=== PATIENT | female | born 2000 | race Caucasian/White ===

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

== ENCOUNTER 2022-03-11 10:08 | Emergency (ER) | payer BC ==
[2022-03-11 11:02] LABS: ALT 19 U/L (4-34); AST 24 U/L (14-36); African American GFR (CKD) >90 (>60 ml/min/1.73 sqM); Albumin 4.3 g/dL (3.5-5.0); Alkaline Phosphatase 76 U/L (38-126); Anion Gap 12 mmol/L; Blood Urea Nitrogen 13 mg/dL (7-17); Calcium 8.4 mg/dL (8.4-10.2); Carbon Dioxide 20 mmol/L (22-30); Chloride 105 mmol/L (98-107); Glucose 90 mg/dL (74-99); Lipase 226 U/L (23-300); Non-African American GFR(CKD) >90 (>60 ml/min/1.73 sqM); Sodium 137 mmol/L (137-145); Total Bilirubin 0.5 mg/dL (0.2-1.3); Total Protein 6.9 g/dL (6.3-8.2)
[2022-03-11 11:04] LABS: Anisocytosis Slight; Basophils % (A) 1 %; Eosinophils # (A) 0.1 k/uL (0-0.7); Eosinophils % (A) 1 %; HCT 25.5 % (34.0-46.0); Hypochromasia Marked; Lymphocytes # (A) 1.2 k/uL (1.0-4.8); Lymphocytes % (A) 27 %; MCHC 25.5 g/dL (31.0-37.0); MCV 62.7 fL (80.0-100.0); Mean Platelet Volume 8.2; Microcytosis Marked; Monocytes # (A) 0.2 k/uL (0-1.0); Monocytes % (A) 4 %; Neutrophils # (A) 2.8 k/uL (1.3-7.7); Neutrophils % (A) 65 %; Platelet Count 278 k/uL (150-450); RBC 4.06 m/uL (3.80-5.40); RDW 18.3 % (11.5-15.5); WBC 4.3 k/uL (4.0-11.0)
[2022-03-11 11:07] LABS: HGB 6.5 gm/dL (11.4-16.0)
--- NOTE | 2022-03-11 11:07 | XR ---
EXAMINATION TYPE: XR chest 2V DATE OF EXAM: 03/11/2022 COMPARISON: NONE HISTORY: Chest pain TECHNIQUE: Frontal and lateral views of the chest are obtained. FINDINGS: There is no focal air space opacity. No evidence for pneumothorax. No pleural effusion. The cardiac silhouette size is within normal limits. The osseous structures are grossly intact. IMPRESSION: 1. No acute cardiopulmonary process.
--- NOTE | 2022-03-11 11:18 | ED ---
General Adult HPI - General Chief complaint: Recheck/Abnormal Lab/Rx Stated complaint: Abn labs Time Seen by Provider: 03/11/22 10:19 Source: patient Mode of arrival: ambulatory Limitations: no limitations - History of Present Illness Initial comments: Patient is an otherwise healthy 21-year-old female who presents to the emergency department for low hemoglobin. Patient got her blood drawn yesterday at her primary care office due to intermittent stomach pain x 2 weeks. Patient and her parents state pain may be related to dairy products as pain usually follows dairy intake. Describes pain as cramping in the lower abdomen. During this pain patient usually has urgency to have a bowel movement, sometimes normal and sometimes diarrhea. Patient states she does not look at her bowel movements therefore unsure of blood in stool. Patient does not have pain currently but also reports intermittent chest burning for the past year. Patient was told she may have acid reflux. She has not paid attention to notice a pattern of the burning in relation to GERD risk factors. Patient got call today that her hemoglobin was 5.9. She denies fatigue, weakness, palpitations, shortness of breath. Denies history of anemia and GI bleed. Reports taking Motrin 2 or 3 times a month for headaches but otherwise denies chronic anti-inflammatory use. Denies alcohol and drug use. Reports regular menstrual periods every month, mild to moderate flow, approx 4-5 days. Patient is not vegetarian. - Related Data Home Medications Medication Instructions Recorded Confirmed norgestimate-ethinyl estradioL 1 tab PO DAILY 03/11/22 03/11/22 [Qpj-[id number]-Cbevun Tablet] Previous Rx's Medication Instructions Recorded Famotidine [Pepcid] 20 mg PO DAILY #30 tablet 03/11/22 Ferrous Sulfate [Slow Fe] 142 mg PO DAILY #30 tab 03/11/22 Allergies Allergy/AdvReac Type Severity Reaction Status Date / Time No Known Allergies Allergy Verified 03/11/22 13:09 Review of Systems ROS Statement: Those systems with pertinent positive or pertinent negative responses have been documented in the HPI. ROS Other: All systems not noted in ROS Statement are negative. Past Medical History Past Medical History: No Reported History History of Any Multi-Drug Resistant Organisms: None Reported Past Surgical History: Tonsillectomy Past Psychological History: No Psychological Hx Reported Smoking Status: Never smoker Past Alcohol Use History: Occasional Past Drug Use History: None Reported General Exam Limitations: no limitations General appearance: alert, in no apparent distress Eye exam: Present: normal appearance, PERRL, EOMI. Absent: scleral icterus, conjunctival injection, periorbital swelling Respiratory exam: Present: normal lung sounds bilaterally. Absent: respiratory distress, wheezes, rales, rhonchi, stridor Cardiovascular Exam: Present: regular rate, normal rhythm, normal heart sounds. Absent: systolic murmur, diastolic murmur, rubs, gallop, clicks GI/Abdominal exam: Present: soft, normal bowel sounds. Absent: distended, tende rness, guarding, rebound, rigid Extremities exam: Present: normal capillary refill. Absent: pedal edema Neurological exam: Present: alert, oriented X3, CN II-XII intact Psychiatric exam: Present: normal affect, normal mood Skin exam: Present: warm, dry, intact, normal color. Absent: rash Course Vital Signs 03/11/22 03/11/22 03/11/22 10:10 11:21 12:16 Temperature 98.1 F 98.5 F Pulse Rate 85 77 80 Respiratory 20 18 16 Rate Blood Pressure 120/74 117/53 124/58 O2 Sat by Pulse 99 100 98 Oximetry 03/11/22 03/11/22 03/11/22 12:27 12:47 13:47 Temperature 99.3 F 98.1 F 98.9 F Pulse Rate 84 89 81 Respiratory 16 16 16 Rate Blood Pressure 119/57 118/65 118/57 O2 Sat by Pulse 100 99 Oximetry 03/11/22 15:17 Temperature 98.9 F Pulse Rate 77 Respiratory 18 Rate Blood Pressure 115/63 O2 Sat by Pulse 98 Oximetry EKG Findings - EKG Comments: EKG Findings:: EKG taken at 11:58. Sinus rhythm with sinus arrhythmia. Ve ntricular rate 74. CO interval 149. QRS duration 93. QTc 426 Medical Decision Making - Medical Decision Making This is a 21-year-old female presenting with low hemoglobin. Patient is well- appearing. Vitals within normal limits. Laboratory studies obtained. There is microcytic hypochromic anemia with hemoglobin at 6.5. No previous for comparison. Hemoccult is negative. Other laboratory studies are relatively unremarkable. CT of the abdomen and pelvis with contrast is negative for acute process. Patient given 1 unit of packed red blood cells. At this time etiology of her anemia is unknown. Possibly iron deficient. Patient does not have anemia symptoms. Case discussed with Dr. Perkins. She will be discharged with strict return parameters. I will send her home with iron supplementation and Pepcid for heartburn. She'll follow-up with Dr. Perkins for further evaluation. Dr. Castillo is my attending. - Lab Data Result diagrams: 03/11/22 10:39 03/11/22 10:39 Lab Results 03/11/22 03/11/22 03/11/22 Range/Units 10:39 10:39 10:39 WBC 4.3 (4.0-11.0) k/uL RBC 4.06 (3.80-5.40) m/uL Hgb 6.5 L* (11.4-16.0) gm/dL Hct 25.5 L (34.0-46.0) % MCV 62.7 L (80.0-100.0) fL MCH 16.0 L (25.0-35.0) pg MCHC 25.5 L (31.0-37.0) g/dL RDW 18.3 H (11.5-15.5) % Plt Count 278 (150-450) k/uL MPV 8.2 Neutrophils % 65 % Lymphocytes % 27 % Monocytes % 4 % Eosinophils % 1 % Basophils % 1 % Neutrophils # 2.8 (1.3-7.7) k/uL Lymphocytes # 1.2 (1.0-4.8) k/uL Monocytes # 0.2 (0-1.0) k/uL Eosinophils # 0.1 (0-0.7) k/uL Basophils # 0.0 (0-0.2) k/uL Manual Slide Review Performed Hypochromasia Marked Anisocytosis Slight Microcytosis Marked Sodium 137 (137-145) mmol/L Potassium 4.0 (3.5-5.1) mmol/L Chloride 105 (98-107) mmol/L Carbon Dioxide 20 L (22-30) mmol/L Anion Gap 12 mmol/L BUN 13 (7-17) mg/dL Creatinine 0.59 (0.52-1.04) mg/dL Est GFR (CKD-EPI)AfAm >90 (>60 ml/min/1.73 sqM) Est GFR (CKD-EPI)NonAf >90 (>60 ml/min/1.73 sqM) Glucose 90 (74-99) mg/dL Calcium 8.4 (8.4-10.2) mg/dL Total Bilirubin 0.5 (0.2-1.3) mg/dL AST 24 (14-36) U/L ALT 19 (4-34) U/L Alkaline Phosphatase 76 (38-126) U/L Troponin I (0.000-0.034) ng/mL Total Protein 6.9 (6.3-8.2) g/dL Albumin 4.3 (3.5-5.0) g/dL Lipase 226 (23-300) U/L Urine Color Urine Appearance (Clear) Urine pH (5.0-8.0) Ur Specific [place] (1.001-1.035) Urine Protein (Negative) Urine Glucose (UA) (Negative) Urine Ketones (Negative) Urine Blood (Negative) Urine Nitrite (Negative) Urine Bilirubin (Negative) Urine Urobilinogen (<2.0) mg/dL Ur Leukocyte Esterase (Negative) Urine HCG, Qual (Not Detectd) Stool Occult Blood (Negative) Blood Type AB Positive Blood Type Confirm Blood Type Recheck No Previous Record Bld Type Recheck Status CABO Indicated Antibody Screen NEGATIVE Crossmatch See Detail Spec Expiration Date 03/14/2022233803/11/22 03/11/22 03/11/22 Range/Units 10:39 10:56 12:26 WBC (4.0-11.0) k/uL RBC (3.80-5.40) m/uL Hgb (11.4-16.0) gm/dL Hct (34.0-46.0) % MCV (80.0-100.0) fL MCH (25.0-35.0) pg MCHC (31.0-37.0) g/dL RDW (11.5-15.5) % Plt Count (150-450) k/uL MPV Neutrophils % % Lymphocytes % % Monocytes % % Eosinophils % % Basophils % % Neutrophils # (1.3-7.7) k/uL Lymphocytes # (1.0-4.8) k/uL Monocytes # (0-1.0) k/uL Eosinophils # (0-0.7) k/uL Basophils # (0-0.2) k/uL Manual Slide Review Hypochromasia Anisocytosis Microcytosis Sodium (137-145) mmol/L Potassium (3.5-5.1) mmol/L Chloride (98-107) mmol/L Carbon Dioxide (22-30) mmol/L Anion Gap mmol/L BUN (7-17) mg/dL Creatinine (0.52-1.04) mg/dL Est GFR (CKD-EPI)AfAm (>60 ml/min/1.73 sqM) Est GFR (CKD-EPI)NonAf (>60 ml/min/1.73 sqM) Glucose (74-99) mg/dL Calcium (8.4-10.2) mg/dL Total Bilirubin (0.2-1.3) mg/dL AST (14-36) U/L ALT (4-34) U/L Alkaline Phosphatase (38-126) U/L Troponin I <0.012 (0.000-0.034) ng/mL Total Protein (6.3-8.2) g/dL Albumin (3.5-5.0) g/dL Lipase (23-300) U/L Urine Color Urine Appearance (Clear) Urine pH (5.0-8.0) Ur Specific [place] (1.001-1.035) Urine Protein (Negative) Urine Glucose (UA) (Negative) Urine Ketones (Negative) Urine Blood (Negative) Urine Nitrite (Negative) Urine Bilirubin (Negative) Urine Urobilinogen (<2.0) mg/dL Ur Leukocyte Esterase (Negative) Urine HCG, Qual (Not Detectd) Stool Occult Blood Negative (Negative) Blood Type Blood Type Confirm AB Positive Blood Type Recheck Bld Type Recheck Status Antibody Screen Crossmatch Spec Expiration Date 03/11/22 03/11/22 Range/Units 12:26 12:26 WBC (4.0-11.0) k/uL RBC (3.80-5.40) m/uL Hgb (11.4-16.0) gm/dL Hct (34.0-46.0) % MCV (80.0-100.0) fL MCH (25.0-35.0) pg MCHC (31.0-37.0) g/dL RDW (11.5-15.5) % Plt Count (150-450) k/uL MPV Neutrophils % % Lymphocytes % % Monocytes % % Eosinophils % % Basophils % % Neutrophils # (1.3-7.7) k/uL Lymphocytes # (1.0-4.8) k/uL Monocytes # (0-1.0) k/uL Eosinophils # (0-0.7) k/uL Basophils # (0-0.2) k/uL Manual Slide Review Hypochromasia Anisocytosis Microcytosis Sodium (137-145) mmol/L Potassium (3.5-5.1) mmol/L Chloride (98-107) mmol/L Carbon Dioxide (22-30) mmol/L Anion Gap mmol/L BUN (7-17) mg/dL Creatinine (0.52-1.04) mg/dL Est GFR (CKD-EPI)AfAm (>60 ml/min/1.73 sqM) Est GFR (CKD-EPI)NonAf (>60 ml/min/1.73 sqM) Glucose (74-99) mg/dL Calcium (8.4-10.2) mg/dL Total Bilirubin (0.2-1.3) mg/dL AST (14-36) U/L ALT (4-34) U/L Alkaline Phosphatase (38-126) U/L Troponin I (0.000-0.034) ng/mL Total Protein (6.3-8.2) g/dL Albumin (3.5-5.0) g/dL Lipase (23-300) U/L Urine Color Yellow Urine Appearance Clear (Clear) Urine pH 6.0 (5.0-8.0) Ur Specific [place] 1.026 (1.001-1.035) Urine Protein Trace H (Negative) Urine Glucose (UA) Negative (Negative) Urine Ketones Negative (Negative) Urine Blood Negative (Negative) Urine Nitrite Negative (Negative) Urine Bilirubin Negative (Negative) Urine Urobilinogen <2.0 (<2.0) mg/dL Ur Leukocyte Esterase Negative (Negative) Urine HCG, Qual Not Detected (Not Detectd) Stool Occult Blood (Negative) Blood Type Blood Type Confirm Blood Type Recheck Bld Type Recheck Status Antibody Screen Crossmatch Spec Expiration Date Disposition Clinical Impression: Low hemoglobin, Burning chest pain, Lower abdominal pain Disposition: HOME SELF-CARE Condition: Good Instructions (If sedation given, give patient instructions): Abdominal Pain (ED), Anemia (ED) Additional Instructions: Take medication as directed. Please follow up with her primary care provider for repeat laboratory studies next week. Return to the emergency department experience new, concerning, or worsening symptoms. Prescriptions: Famotidine [Pepcid] 20 mg PO DAILY #30 tablet Ferrous Sulfate [Slow Fe] 142 mg PO DAILY #30 tab Is patient prescribed a controlled substance at d/c from ED?: No Referrals: Thomas Perkins MD [Primary Care Provider] - 1-2 days
[2022-03-11 13:02] LABS: Appearance,Urine Clear (Clear); Bilirubin,Urine Negative (Negative); Blood,Urine Negative (Negative); Color,Urine Yellow; Glucose,Urine (UA) Negative (Negative); Ketones,Urine Negative (Negative); Leukocyte Esterase,Urine Negative (Negative); Nitrite,Urine Negative (Negative); Protein,Urine Trace (Negative); Specific Gravity,Urine 1.026 (1.001-1.035); Urobilinogen,Urine <2.0 mg/dL (<2.0)
[2022-03-11 13:50] VITALS: TEMP 98.9
--- NOTE | 2022-03-11 14:49 | CT ---
EXAMINATION TYPE: CT abdomen pelvis w con DATE OF EXAM: 03/11/2022 HISTORY: Abdominal pain, low hemoglobin CT DLP: 577.1mGycm Automated Exposure Control for Dose Reduction was Utilized. CONTRAST: CT scan of the abdomen and pelvis is performed without oral and with IV Contrast, patient injected wi th 100 mL of Isovue 300. COMPARISON: None. FINDINGS: LUNG BASES: No significant abnormality is appreciated. LIVER/GB: No significant abnormality is appreciated. PANCREAS: No significant abnormality is seen. SPLEEN: No significant abnormality is seen. ADRENALS: No significant abnormality is seen. KIDNEYS: Symmetric cortical medullary uptake and excretion with asymmetric mild right-sided hydroneph rosis and hydroureter but no obstructing calculus. BOWEL: Suboptimal evaluation without enteric contrast and patient having little intra-abdominal fat. There is no suspicious small or large bowel dilatation. Normal-appearing appendix extends posteriorly from the base of cecum. UTERUS/ADNEXA: Slightly retroverted uterus projects to right of midline with small amount of free flu id in the right pelvic cul-de-sac axial image 65. LYMPH NODES: No greater than 1cm abdominal or pelvic lymph nodes are appreciated. Prominent but subce ntimeter lymph nodes throughout the left abdominal mesentery are identified OSSEOUS STRUCTURES: No significant abnormality is seen. OTHER: No significant additional abnormality is seen. IMPRESSION: Mild right-sided hydronephrosis but no delayed excretion or obstructing calculus. Small a mount of free fluid in the pelvic cul-de-sac is nonspecific finding. No bowel obstruction. No acute f indings clearly seen
[2022-03-11 15:18] VITALS: RESP 18
[2022-03-11 15:51] VITALS: BP 108/53; PULSE 87
== END 2022-03-11 15:51 | disposition home or self-care (01) ==
LOC: EC 10:08
DX: D64.9 Anemia, unspecified (principal); R07.89 Other chest pain; R10.30 Lower abdominal pain, unspecified
CPT/HCPCS: 36415; 93005; 86900; 86901; 80053; 83690; 84484; 85025; 86850; 86920; 82272; 81003; 81025; 71046; 74177; 99284; P9016; Q9967

== ENCOUNTER 2022-05-17 09:26 | Day surgery (SDC) | payer BC ==
[~2022-05-17 09:26] MED LIST: LACTATED RINGERS 1,000 ML IV SCH; LIDOCAINE 1% (10MG/ML) FOR IV START INTRADERMA PRN
[2022-05-17 10:17] VITALS: RESP 16; TEMP 97.7
[2022-05-17] MEDS ORDERED: PROPOFOL 10 MG/ML 20 ML VIAL IV ONE (10:47)
[2022-05-17] MEDS ORDERED: LIDOCAINE 2% INJ 20 MG/ML (2 ML VIAL) ONE (10:47)
--- NOTE | 2022-05-17 11:04 | P.PCN ---
Date of Procedure: 05/17/22 Procedure(s) Performed: BRIEF HISTORY: Patient is a 21-year-old, pleasant, white female scheduled for an upper endoscopy as a part of evaluation of severe iron deficiency anemia. She was recently noted to have a hemoglobin of 6.4 g/dL requiring unit of blood transfusion. Celiac serology was positive for TTG IgA antibody. She is scheduled for an upper endoscopy to evaluate further PROCEDURE PERFORMED: Esophagogastroduodenoscopy with multiple duodenal biopsies. PREOPERATIVE DIAGNOSIS: Iron deficiency anemia and positive serology for celiac disease. IV sedation per anesthesia. PROCEDURE: After informed consent was obtained, the patient was brought into the endoscopy unit. IV sedation was administered by Anesthesia under continuous monitoring. Initially the Olympus GIF-140 video endoscope was inserted into the mouth. Esophagus intubated without any difficulty. It was gradually advanced int o the stomach and duodenum and carefully examined. The bulb and the second part of the duodenum had decreased duodenum and mucosa appeared slightly atrophic suspicious for celiac disease and multiple biopsies were done from this area. The scope at this time was withdrawn to the stomach, adequately insufflated with air, and upon careful examination, mucosa of the antrum, body, cardia and the fundus appeared normal. The scope was then withdrawn into the esophagus. The GE junction was located at 39 cm from the incisors. The esophagus appeared normal. There were no erosions or ulcerations seen and the patient tolerated the procedure well. IMPRESSION: 1. Decrease duodenal folds and atrophic appearing duodenal mucosa suggestive of celiac disease status post multiple biopsies. RECOMMENDATIONS: The findings of this examination were discussed with the patient as well as a family. She was advised to follow with the biopsy results. She'll be seen in office in 2 weeks..
[2022-05-17 11:27] VITALS: BP 113/72; PULSE 62
== END 2022-05-17 11:56 | disposition home or self-care (01) ==
LOC: ORWHC2ENDO 09:26
PROVIDERS: ATTEND Internal Medicine Gastroenterology
DX: D50.9 Iron deficiency anemia, unspecified (principal); K90.0 Celiac disease; K29.80 Duodenitis without bleeding; Z79.899 Other long term (current) drug therapy
CPT/HCPCS: 81025; 88305; 43239; J2704; J2001

== ENCOUNTER → 2022-11-24 | Outpatient (CLI) | payer BC ==
[2022-11-24 16:20] LABS: % Iron Saturation 64.14 (12.00-45.00)
[2022-11-24 16:24] LABS: Basophils # (A) 0.03 X 10*3/uL (0.00-0.10); Basophils % (A) 0.5 %; Eosinophils # (A) 0.05 X 10*3/uL (0.04-0.35); Eosinophils % (A) 0.9 %; HCT 46.5 % (37.2-46.3); HGB 15.2 d/dL (12.0-15.0); Lymphocytes # (A) 1.51 X 10*3/uL (0.90-5.00); Lymphocytes % (A) 27.6 %; MCHC 32.7 d/dL (32.0-37.0); MCV 94.7 FL (80.0-97.0); Mean Platelet Volume 10.8 FL (9.5-12.2); Monocytes # (A) 0.25 X 10*3/uL (0.20-1.00); Monocytes % (A) 4.6 %; NRBC Per 100 WBC 0 X 10*3/uL (0.00-0.01); Neutrophils # (A) 3.61 X 10*3/uL (1.80-7.70); Platelet Count 213 X 10*3/uL (140-440); RBC 4.91 X 10*6/uL (4.10-5.20); RDW 12.1 % (11.5-14.5); WBC 5.47 X 10*3/uL (4.50-10.00)
[2022-11-24 18:41] LABS: Gliadin AB IgA, Deaminated Negative (Negative); Gliadin AB IgA, Unit 1.4 U/mL
[2022-11-24 21:16] LABS: Gliadin AB IgG, Deaminated POSITIVE
== END | disposition home or self-care (01) ==
LOC: LABWHC1 11:17
PROVIDERS: ATTEND Internal Medicine Gastroenterology
DX: E61.1 Iron deficiency (principal)
CPT/HCPCS: 36415; 82728; 83516; 83540; 83550; 85025